=== PATIENT | female | born 1975 | race Caucasian/White ===

== ENCOUNTER 2020-01-08 15:50 | Outpatient (REF) | payer BC, SELFPAY | END 2020-01-08 15:51 | disposition home or self-care (01) | LOC: HO.LAB 15:50 | PROVIDERS: PCP Internal Medicine; Visit Provider Internal Medicine | DX: Z20.828 Contact with and (suspected) exposure to other viral communicable diseases (principal) | CPT/HCPCS: C9803; U0003 ==

== ENCOUNTER 2021-03-03 14:57 | Outpatient (REF) | payer OTHER, SELFPAY ==
[2021-03-03 17:06] LABS: Influenza A PCR NEGATIVE (Negative); Influenza B PCR NEGATIVE (Negative); Resp Syncy Virus RNA Qual PCR NEGATIVE (Negative); SARS COV2 PCR INHOUSE POSITIVE (Negative)
== END 2021-03-03 14:58 | disposition home or self-care (01) ==
LOC: HO.LAB 14:57
PROVIDERS: PCP Internal Medicine; Visit Provider Internal Medicine
DX: Z20.822 Contact with and (suspected) exposure to COVID-19 (principal); R09.81 Nasal congestion
CPT/HCPCS: 0241U

== ENCOUNTER 2023-10-13 12:44 | Outpatient (AMB) | payer OTHER, SELFPAY ==
--- NOTE | 2023-10-13 12:45 | MHC.PC.OV ---
Intake Visit Reasons: High BP Intake Note: Telehealth follow up BP Solution Director Required: No Accompanied by: Self / Same As Patient Allergies No Known Allergies Allergy (Verified 10/13/23 12:48) Tobacco use date assessed: 10/13/23 Dental Screening Dental Screen Date: 10/13/23 Did you have a dental visit in the last 12 months?: Yes Did you have a dental problem in the last 6 months where you did not have access to dental care?: No Was dental information given to patient?: Patient has dentist HPI HPI Comments History of Present Illness Details This is a 48-year-old female with obsessive compulsive disorder and dermatitis that has tele health visit by video today complaining of elevated blood pressure when she goes to the dentist and when she went to urgent care 2 weeks ago. She denies any chest pain or shortness on breath. No other acute complaint. OCD stable with venlafaxine. Dermatitis well controlled with triamcinolone cream. I will order labs and see her in person in 2 weeks for her blood pressure. [facility] Medical History (Updated 10/13/23 @ 13:00 by Willow Johnson MD) Nasal congestion OCD (obsessive compulsive disorder) Surgical History (Updated 10/13/23 @ 12:47 by LOUANN Meek) No pertinent past surgical history Social History Housing: House Alcohol intake: never Patient Tobacco Use Status: Never used Tobacco e-Cigarette/Vaping Use: Never Used Second Hand Smoke Exposure: No service: No Current occupational status: employed Current occupational exposures/hazards: No Cognitive needs: No Hearing needs: No Vision needs: No Questionnaire PHQ-9 Over the last 2 weeks, how often have you been bothered by any of the following problems? 1. Little interest or pleasure in doing things: not at all 2. Feeling down, depressed, or hopeless: not at all 3. Trouble falling or staying asleep, or sleeping too much: not at all 4. Feeling tired or having little energy: not at all 5. Poor appetite or overeating: not at all 6. Feeling bad about yourself - or that you are a failure or have let yourself or your family down: not at all 7. Trouble concentrating on things, such as reading the newspaper or watching television: not at all 8. Moving or speaking so slowly that other people could have noticed. Or the opposite - being so fidgety or restless that you have been moving around a lot more than usual: not at all 9. Thoughts that you would be better off or of hurting yourself in some way: not at all Total score: 0 Depression Screening Interpretation: Negative Depression Screening Done: Yes [id number] - PHQ-9 Billing: Yes Source: Developed by Drs. Nadeem Mckenzie, Karina Holm, Esdras Stinson and colleagues, with an educational vianca from [employer] Thrive Questionnaire Date Thrive assessed: 10/13/23 I am a: Patient What is your living situation today?: I have a steady place to live Within the past 12 months, did the food you bought not last and you didn't have the money to get more?: Never true Within the past 12 months, did you worry whether your food would run out before you got money to buy more?: Never true Do you have trouble paying for medicines?: No Do you have trouble getting transportation to medical appointments?: No Do you have trouble paying your heating and electricity bill?: No Do you have trouble taking care of your child, family member or friend?: No Do you have trouble with day-to-day activities such as bathing, preparing meals, shopping, managing finances, etc.?: No Are you currently unemployed and looking for a job?: No Are you interested in more education?: No Please select the resources that you would like help with: None Currently or been in a relationship where the following occur: No concerns reported THRIVE Score: 0 AUDIT C Alcohol Use Questionnaire (AUDIT-C) 1. How often do you have a drink containing alcohol?: Never Total Score: 0 Score Reviewed/Action Taken: No SEAMUS-7 AMB Questionnaire SEAMUS-7 Date SEAMUS - 7 assessed: 10/13/23 Feeling nervous, anxious, or on edge: 1 = Several days Not being able to stop or control worryin = Not at all Worrying too much about different things: 0 = Not at all Trouble relaxin = Not at all Being so restless that it is hard to sit still: 0 = Not at all Becoming easily annoyed or irritable: 0 = Not at all Feeling afraid as if something awful might happen: 0 = Not at all Total SEAMUS-7 score (0-4 normal; 5-9 mild; 10-14 moderate; 15-21 severe): 1 Source: Developed by Drs. Nadeem Mckenzie, Karina Holm, Esdras Stinson and colleagues, with an educational vianca from [employer] SEAMUS-7 Assessment Billing SEAMUS-7 Assessment Tool: SEAMUS-7 Assessment 22955 Review of Systems Const All systems reviewed & are unremarkable except as noted in HPI and below Card Denies chest pain at rest, Denies chest pain with activity, Denies edema, Denies irregular heart rhythm, Denies claudication, Denies dyspnea, Denies dyspnea on exertion, Denies orthopnea, Denies paroxysmal nocturnal dyspnea and Denies slow heart rate Resp Denies cough, Denies dyspnea and Denies dyspnea on exertion Physical exam (Primary Care) Tobacco/Smoking Status: Tobacco use Status Tobacco use date assessed 10/13/23 10/13/23 12:50 Patient Tobacco Use Status Never used Tobacco 10/13/23 12:50 e-Cigarette/Vaping Use Never Used 10/13/23 12:50 PHQ-9: PHQ-9 Score PHQ-9: Total score 0 10/13/23 12:50 Depression Screening Interpretation: Negative Thrive Assessment: Date of Thrive Assessment Date Thrive assessed 10/13/23 10/13/23 12:50 Currently or been in a relationship where the following occur: No concerns reported HENMT Head: Yes normocephalic General nose exam: Normal external nose present Mouth: lip normal Eyes General: appearance normal, both eyes and all related structures Eyelids: Yes eyelids normal Conjunctivae: conjunctivae normal Extrem General: Yes full ROM Psych Appearance: grossly normal Telehealth Telehealth Telehealth Platform: Other (please specify) (facetime) Location of provider rendering services: practice address Location of patient: address on file Patient Identification confirmed using: Name, : Yes Telehealth method: video Patient verbally consented to treatment: Yes Patient verbally consented to billing insurance company: Yes Patient informed of any privacy concerns related to visit: Yes Minutes spent on Phone/Video with Pt.: 15 Assessment and Plan Assessment & Plan (1) OCD (obsessive compulsive disorder): Code(s): F42.9 - Obsessive-compulsive disorder, unspecified Plan: Continue venlafaxine. (2) Elevated blood pressure reading without diagnosis of hypertension: Code(s): R03.0 - Elevated blood-pressure reading, without diagnosis of hypertension Plan: Fasting labs order and patient is aware she needs to do fasting blood work before appointment. (3) Dermatitis: Code(s): L30.9 - Dermatitis, unspecified Plan: Continue triamcinolone. Orders: Orders Comprehensive [place]. Panel Fast Today R03.0 - Elevated blood-pressure reading, without diagnosis of hypertension Thyroid Stimulating Hormone Today E66.9 - Obesity, unspecified Lipid Panel Today R03.0 - Elevated blood-pressure reading, without diagnosis of hypertension Complete Blood Count Auto Diff Today F42.9 - Obsessive-compulsive disorder, unspecified Medications: Refilled triamcinolone acetonide 0.1% 1 appl topical DAILY 30 days 30 grams 1RF venlafaxine ER 37.5 mg PO DAILY 90 days 90 caps 3RF F42.9 - Obsessive-compulsive disorder, unspecified Coding Level of Care Code Tele Est Pt Level 3 (61105) Complex EM visit Add On [id number] Diagnoses OCD (obsessive compulsive disorder) F42.9 Elevated blood pressure reading without diagnosis of hypertension R03.0 Dermatitis L30.9 Additional Codes SEAMUS-7 Assessment Billing - SEAMUS-7 Assessment Tool: SEAMUS-7 Assessment 37965 ([id number]) Time Spent (min) 15
== END 2023-10-13 14:18 | disposition home or self-care (01) ==
PROVIDERS: PCP Internal Medicine; Visit Provider Internal Medicine
DX: R03.0 Elevated blood-pressure reading, without diagnosis of hypertension (principal); F42.9 Obsessive-compulsive disorder, unspecified; L30.9 Dermatitis, unspecified
CPT/HCPCS: 99213

== ENCOUNTER 2023-10-28 12:09 | Outpatient (REF) | payer BC, SELFPAY ==
[2023-10-28 12:36] LABS: MANUAL DIFF FLAG NO
[2023-10-28 13:45] LABS: Basophils Percent Auto 0.6 % (0-2); Eosinophils Absolute Auto 0.1 X10*3/uL (0.0-0.4); Eosinophils Percent Auto 1.1 % (0-4); Hematocrit 41.2 % (37.0-47.0); Imm Gran Abs Auto 0.02 X10*3/uL (0.00-0.03); Imm Gran Pct Auto 0.3 % (0.0-0.4); Lymphocytes Percent Auto 28.3 % (20-40); Mean Corpuscular Volume 85.3 fL (80.0-98.0); Mean Platelet Volume 10.4 fL (9.4-12.3); Monocytes Absolute Auto 0.6 X10*3/uL (0.1-1.2); Monocytes Percent Auto 8.8 % (2-11); Neutrophils Absolute Auto 4.3 x10*3/uL (2.0-8.3); Neutrophils Percent Auto 60.9 % (45-73); Platelet Count 288 X10*3/uL (160-400); Red Blood Count 4.83 X10*6/uL (4.20-5.50); Red Cell Distribution Width 13.3 % (11.0-16.0)
[2023-10-28 14:34] LABS: Alanine Aminotransferase 14 U/L (0-31); Albumin Level 4.6 g/dL (3.5-5.0); Alkaline Phosphatase 64 U/L (39-117); Anion Gap 10 (12-20); Aspartate Amino Transferase 14 U/L (5-31); Bilirubin Total 0.4 mg/dL (0.0-1.0); Blood Urea Nitrogen 16 mg/dL (9-16); Calcium 9.7 mg/dL (8.4-10.2); Carbon Dioxide 28 mmol/L (22-29); Chloride 104 mmol/L (96-108); Cholesterol 240 mg/dL (<200); Estimated Glomerular Filt Rate > 60; Glucose Fasting 84 mg/dL (60-99); HDL Cholesterol 70 mg/dL (>40); LDL Cholesterol Calculated 150 mg/dL (<100); Potassium 4.3 mmol/L (3.3-5.1); Sodium 138 mmol/L (135-145); Thyroid Stimulating Hormone 2.99 uIU/mL (0.32-4.0); Total Protein 8.1 g/dL (6.5-8.0); Triglycerides 101 mg/dL (<150)
== END 2023-10-28 12:10 | disposition home or self-care (01) ==
LOC: HO.LAB 12:09
PROVIDERS: PCP Internal Medicine; Visit Provider Internal Medicine
DX: R03.0 Elevated blood-pressure reading, without diagnosis of hypertension (principal); E66.9 Obesity, unspecified; F42.9 Obsessive-compulsive disorder, unspecified
CPT/HCPCS: 36415; 80053; 80061; 84443; 85025

== ENCOUNTER 2023-11-02 09:28 | Outpatient (AMB) | payer BC, SELFPAY ==
--- NOTE | 2023-11-02 09:29 | A.OFFPC_ITS ---
Vital Signs 11/02/23 09:30 Height 5 ft 4 in Weight 200 lb BMI 34.3 BP 176/98 H Blood Pressure Location Lt brachial Position Sitting Intake Visit Reasons: 2 week f/u Vehicle Check In Clerk Required: No Accompanied by: Self / Same As Patient Allergies No Known Allergies Allergy (Verified 11/02/23 09:50) Medication List - Last Reconciled 11/02/23 by Willow Johnson MD triamcinolone acetonide 0.1% 1 appl topical DAILY 30 days venlafaxine ER 37.5 mg PO DAILY 90 days Tobacco use date assessed: 10/13/23 Dental Screening Dental Screen Date: 10/13/23 HPI HPI Comments History of Present Illness Details This is a 48-year-old female with obesity and OCD comes today to check her blood pressure. Blood pressure has been over 140/90 at the dentist and at urgent care. This was recently. Denies any chest pain or shortness on breath. I did recommend to start her on medication but she declines it today and would like to start diet and exercise. I did give her a diet and recommend 30 minutes exercise 5 times a week. Blood pressure will be recheck in 3 weeks by nurse navigator. She is obese with a BMI of 34.3 and her BMI goal should be less than 30. OCD stable with venlafaxine. [facility] Medical History (Updated 11/02/23 @ 13:43 by Willow Johnson MD) Elevated blood pressure reading without diagnosis of hypertension Nasal congestion OCD (obsessive compulsive disorder) Surgical History No pertinent past surgical history Social History Housing: House Alcohol intake: never Patient Tobacco Use Status: Never used Tobacco e-Cigarette/Vaping Use: Never Used Second Hand Smoke Exposure: No service: No Current occupational status: employed Current occupational exposures/hazards: No Cognitive needs: No Hearing needs: No Vision needs: No Questionnaire Thrive Questionnaire Date Thrive assessed: 10/13/23 AUDIT C Alcohol Use Questionnaire (AUDIT-C) 2. How many drinks containing alcohol do you have on a typical day when you are drinking?: 1 or 2 3. How often do you have six or more drinks on one occasion?: Never Total Score: 0 SEAMUS-7 AMB Questionnaire SEAMUS-7 Date SEAMUS - 7 assessed: 10/13/23 Source: Developed by Drs. Nadeem Mckenzie, Karina Holm, Esdras Stinson and colleagues, with an educational vianca from [employer]. Review of Systems Const All systems reviewed & are unremarkable except as noted in HPI and below Card Denies chest pain at rest, Denies chest pain with activity, Denies edema, Denies irregular heart rhythm, Denies claudication, Denies dyspnea, Denies dyspnea on exertion, Denies orthopnea, Denies paroxysmal nocturnal dyspnea and Denies slow heart rate Resp Denies cough, Denies dyspnea and Denies dyspnea on exertion GI Denies abdominal pain, Denies change in bowel habits, Denies excessive flatus, Denies nausea and Denies vomiting Denies urinary incontinence, Denies urinary hesitancy and Denies urinary urgency Musc Denies abnormal gait, Denies atrophy, Denies deformity and Denies limited range of motion Skin/Breast Denies bleeding lesions, Denies changing lesions and Denies rash Neuro Denies abnormal gait and Denies lack of coordination Physical exam (Primary Care) Vital Signs: Last Vital Signs BP 176/98 H 11/02/23 09:30 BMI result Body Mass Index 34.3 BMI Assessment/Plan discussion: High BMI High, discussed plan: lifestyle, weight reduction, dietary and physical activity Tobacco/Smoking Status: Tobacco use Status Tobacco use date assessed 10/13/23 11/02/23 09:35 Patient Tobacco Use Status Never used Tobacco 11/02/23 09:35 e-Cigarette/Vaping Use Never Used 11/02/23 09:35 Thrive Assessment: Date of Thrive Assessment Date Thrive assessed 10/13/23 11/02/23 09:35 Resp Effort & Inspection: normal respiratory effort Auscultation: clear to auscultation bilaterally Cardio Jugular venous distension: no JVD Rate: regular rate Rhythm: regular rhythm Heart sounds: S1 normal heart sound present and S2 normal heart sound present Extrem General: Yes full ROM Psych Appearance: grossly normal Assessment and Plan Assessment & Plan (1) OCD (obsessive compulsive disorder): Code(s): F42.9 - Obsessive-compulsive disorder, unspecified Qualifiers: Obsessive-compulsive disorder type: unspecified Qualified Code(s): F42.9 - Obsessive-compulsive disorder, unspecified Plan: Continue venlafaxine. (2) Obesity, Class I, BMI 30.0-34.9 (see actual BMI): Code(s): E66.9 - Obesity, unspecified Plan: Start diet and exercise. BMI goal is less than 30. (3) Essential hypertension: Code(s): I10 - Essential (primary) hypertension Plan: Recheck blood pressure with nurse navigator in 3 weeks. Start a low-salt diet. Blood pressure goal is less than 130/80. She was recommended to take home blood pressure measurements at least every other day and at different times of the day. Coding Level of Care Code Est Pt Level 3 (88561) Diagnoses Obsessive-compulsive disorder, unspecified type F42.9 Obsessive-compulsive disorder type: unspecified Obesity, Class I, BMI 30.0-34.9 (see actual BMI) E66.9 Essential hypertension I10 Time Spent (min) 19
[2023-11-02 09:30] VITALS: BP 176/98; BMI 34.3
== END 2023-11-02 10:10 | disposition home or self-care (01) ==
PROVIDERS: PCP Internal Medicine; Visit Provider Internal Medicine
DX: F42.9 Obsessive-compulsive disorder, unspecified (principal); E66.9 Obesity, unspecified; Z68.34 Body mass index [BMI] 34.0-34.9, adult; I10 Essential (primary) hypertension
CPT/HCPCS: 99213

== ENCOUNTER 2024-07-03 10:33 | Outpatient (AMB) | payer BC, SELFPAY ==
--- NOTE | 2024-07-03 10:35 | A.OFFPC_ITS ---
Vital Signs 07/03/24 10:36 Height 5 ft 4 in Weight 201 lb BMI 34.5 BP 156/90 H Blood Pressure Location Lt brachial Position Sitting Intake Visit Reasons: PE Intake Note: Patient here for a physical exam Science Editor Required: No Accompanied by: Self / Same As Patient Allergies No Known Allergies Allergy (Verified 07/03/24 10:49) Medication List - Last Reconciled 07/03/24 by Willow Johnson MD blood pressure test kit-large ([employer] GlobalTouch Blood Pressure Monitor kit) As directed triamcinolone acetonide 0.1% 1 appl topical DAILY 30 days venlafaxine ER 37.5 mg PO DAILY 90 days Tobacco use date assessed: 07/03/24 Dental Screening Dental Screen Date: 07/03/24 Did you have a dental visit in the last 12 months?: Yes Did you have a dental problem in the last 6 months where you did not have access to dental care?: No Was dental information given to patient?: Patient has dentist HPI HPI Comments History of Present Illness Details The patient is a 49-year-old female presenting mainly for a physical ex am with concerns about elevated blood pressure management and weight. Blood pressure readings at home showed elevation, contrasting lower measurements during a dental visit last week. No antihypertensive medication was started following acceptable home readings on recheck. The patient desires to avoid medication if possible and currently employs a low-sodium diet and adequate hydration strategy. Concern regarding weight stems from consistent exercise without significant loss. The patient engages in a fitness routine comprised of gym sessions and walking. Dietary modifications include limiting carbohydrates and sugars, despite reported difficulties in achieving weight loss. The patient explored weight-loss medication options, focusing on alternatives with a lower risk of raising blood pressure. The patient's immunization status is under review; the last tetanus vaccination was during a 13 years prior. There is expressed willingness to update the vaccine if necessary. The patient wishes to utilize Cologuard for colorectal cancer screening, citing perception of adverse preparation experiences associated with colonoscopy from her spouse's experience while having no family history of colon cancer. - Discussed tetanus vaccine (Tdap) and r ecommended due to a 13-year interval since the last administration. - Blood pressure management plan without medication: pursue a low sodium diet and adequate hydration. - Weight management discussion: consiste nt exercise three to four times weekly and dietary modifications to lower carbohydrate and sugar intake. - Screening for colorectal cancer via Co loguard requested, understanding follow- up with colonoscopy if results are positive. - Lipid panel and comprehensive blood pa hardeep indicated, as mild cholesterol elevation noted previously. [facility] Medical History (Updated 07/03/24 @ 11:12 by Willow Johnson MD) Elevated blood pressure reading without diagnosis of hypertension Nasal congestion OCD (obsessive compulsive disorder) Surgical History No pertinent past surgical history Family History (Updated 07/03/24 @ 10:58 by Willow Johnson MD) Father No problems noted. Mother Kidney malignancy Uterine cancer Social History Housing: House Alcohol intake: never Patient Tobacco Use Status: Never used Tobacco e-Cigarette/Vaping Use: Never Used Second Hand Smoke Exposure: No service: No Current occupational status: employed Current occupational exposures/hazards: No Cognitive needs: No Hearing needs: No Vision needs: No Questionnaire PHQ-9 Over the last 2 weeks, how often have you been bothered by any of the following problems? 1. Little interest or pleasure in doing things: not at all 2. Feeling down, depressed, or hopeless: not at all 3. Trouble falling or staying asleep, or sleeping too much: not at all 4. Feeling tired or having little energy: not at all 5. Poor appetite or overeating: not at all 6. Feeling bad about yourself - or that you are a failure or have let yourself or your family down: not at all 7. Trouble concentrating on things, such as reading the newspaper or watching television: not at all 8. Moving or speaking so slowly that other people could have noticed. Or the opposite - being so fidgety or restless that you have been moving around a lot more than usual: not at all 9. Thoughts that you would be better off or of hurting yourself in some way: not at all Total score: 0 Depression Screening Interpretation: Negative Depression Screening Done: Yes 15242 - PHQ-9 Billing: Yes Source: Developed by Drs. Nadeem Mckenzie, Karina Holm, Esdras Stinson and colleagues, with an educational vianca from [employer]. Thrive Questionnaire Date Thrive assessed: 07/03/24 I am a: Patient What is your living situation today?: I have a steady place to live Within the past 12 months, did the food you bought not last and you didn't have the money to get more?: I choose not to answer this question Within the past 12 months, did you worry whether your food would run out before you got money to buy more?: I choose not to answer this question Do you have trouble paying for medicines?: No Do you have trouble getting transportation to medical appointments?: No Do you have trouble paying your heating and electricity bill?: No Do you have trouble taking care of your child, family member or friend?: No Do you have trouble with day-to-day activities such as bathing, preparing meals, shopping, managing finances, etc.?: No Are you currently unemployed and looking for a job?: No Are you interested in more education?: No Please select the resources that you would like help with: None Currently or been in a relationship where the following occur: No concerns reported THRIVE Score: 0 AUDIT C Alcohol Use Questionnaire (AUDIT-C) 1. How often do you have a drink containing alcohol?: Never Total Score: 0 Score Reviewed/Action Taken: No SEAMUS-7 AMB Questionnaire SEAMUS-7 Date SEAMUS - 7 assessed: 07/03/24 Feeling nervous, anxious, or on edge: 0 = Not at all Not being able to stop or control worryin = Not at all Worrying too much about different things: 0 = Not at all Trouble relaxin = Not at all Being so restless that it is hard to sit still: 0 = Not at all Becoming easily annoyed or irritable: 1 = Several days Feeling afraid as if something awful might happen: 0 = Not at all Total SEAMUS-7 score (0-4 normal; 5-9 mild; 10-14 moderate; 15-21 severe): 1 Source: Developed by Drs. Nadeem Mckenzie, Karina Holm, Esdras Stinson and colleagues, with an educational vianca from [employer]. SEAMUS-7 Assessment Billing SEAMUS-7 Assessment Tool: SEAMUS-7 Assessment 81350 Review of Systems Const All systems reviewed & are unremarkable except as noted in HPI and below Card Denies chest pain at rest, Denies chest pain with activity, Denies edema, Denies irregular heart rhythm, Denies claudication, Denies dyspnea, Denies dyspnea on exertion, Denies orthopnea, Denies paroxysmal nocturnal dyspnea and Denies slow heart rate Resp Denies cough, Denies dyspnea and Denies dyspnea on exertion GI Denies abdominal pain, Denies change in bowel habits, Denies excessive flatus, Denies nausea and Denies vomiting Physical exam (Primary Care) Vital Signs: Last Vital Signs BP 156/90 H 07/03/24 10:36 BMI result Body Mass Index 34.5 BMI Assessment/Plan discussion: High BMI High, discussed plan: lifestyle, weight reduction, dietary and physical activity Tobacco/Smoking Status: Tobacco use Status Tobacco use date assessed 07/03/24 07/03/24 10:40 Patient Tobacco Use Status Never used Tobacco 07/03/24 10:40 e-Cigarette/Vaping Use Never Used 07/03/24 10:40 PHQ-9: PHQ-9 Score PHQ-9: Total score 0 07/03/24 11:12 Depression Screening Interpretation: Negative Thrive Assessment: Date of Thrive Assessment Date Thrive assessed 07/03/24 07/03/24 10:40 Currently or been in a relationship where the following occur: No concerns reported [facility] Head: Yes normal to inspection, Yes normocephalic and Yes atraumatic Ears: external ears normal Eyes General: appearance normal, both eyes and all related structures Eyelids: Yes eyelids normal Conjunctivae: conjunctivae normal Neck Neck: Yes normal visual inspection and Yes supple Resp Effort & Inspection: normal respiratory effort Auscultation: clear to auscultation bilaterally Cardio Jugular venous distension: no JVD Rate: regular rate Rhythm: regular rhythm Heart sounds: S1 normal heart sound present and S2 normal heart sound present GI Inspection: Yes normal to inspection Palpation (GI): Soft to palpation and nontender Auscultation: normal bowel sounds Skin General skin exam: no rashes or lesions noted Neuro General: no focal motor deficits Extrem General: Yes full ROM Psych Appearance: grossly normal Immunizations Boostrix Tdap 2.5 Lf unit-8 mcg-5 Lf/0.5 mL intramuscular syringe Performing Provider: Willow Johnson MD [facility] Administered by: LOUANN Meek on 07/03/24 11:15 Dose Route Admin Location Dispensed Lot Number Expiration Date 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 0.5 mL IM Left Deltoid 0.5 mL [id number] 10/16/26 07762-091-39 [place] VIS Given Date VIS Provided VIS Publication Date 07/03/24 Single Vaccine 24 Eligibility Eligibility Date Funding Source Not [facility] Eligible 07/03/24 Private Coding Level of Care Code Est Pt Level 3 (27642) Est Pt Prev Care 40-64y(98261) Diagnoses Physical exam Z00.00 Obesity, Class I, BMI 30.0-34.9 (see actual BMI) E66.9 Additional Codes SEAMUS-7 Assessment Billing - SEAMUS-7 Assessment Tool: SEAMUS-7 Assessment 96055 ([id number]) PHQ-9 - 40553 - PHQ-9 Billing: Yes ([id number]) Time Spent (min) 33 Assessment & Plan Assessment & Plan (1) Physical exam: Code(s): Z00.00 - Encounter for general adult medical examination without abnormal findings Category: Medical (2) Obesity, Class I, BMI 30.0-34.9 (see actual BMI): Code(s): E66.9 - Obesity, unspecified Category: Medical Plan The patient will receive the tetanus vaccine as indicated for updated immu nization. Blood pressure will be managed with lifestyle changes, maintaining a low-sodium diet and adequate hydration while assessing the necessity for antihypertensive medication. Weight management will be addressed with new medication options; Topiramate is proposed considering the patient?s hesitant stance on phentermine due to potential for blood pressure elevation. Regular screenings will be upheld with a Cologuard test ordered for colon cancer screening, and cholesterol levels will be rechecked due to previous mild elevation. Immunizations, mammograms, and Pap smears are arranged with her respective providers. Patient was informed and verbally consented to the use of an ambient scribe for clinic note documentation during this visit. We discussed the importance of addressing elevated blood pressure through non- pharmacologic approaches which the patient prefers, including dietary sodium reduction and ensuring adequate hydration. For weight management, the option of Topiramate was presented, discussing mild side effect profile and potential modest weight loss, while the patient wishes to avoid phentermine due to its cardiovascular risks. The patient will undertake colorectal cancer screening through Cologuard, understanding that a positive result would necessitate follow-up with colonoscopy. A re-evaluation of the patient's cholesterol level was considered due to previous mild elevation, with proactive management planned based on results. Upcoming mammogram and Pap smear arrangements were discussed for continuity of care. Follow-up will occur for subsequent monitoring and adjustment of treatment strategies. Orders: Orders Lipid Panel Today E78.5 - Hyperlipidemia, unspecified Comprehensive Met. Panel Today Z00.00 - Encounter for general adult medical examination without abnormal findings TDaP Immunization Today Z23 - Encounter for immunization Referrals Cologuard Test Z12.11 - Encounter for screening for malignant neoplasm of colon, Z12.12 - Encounter for screening for malignant neoplasm of rectum Medications: New topiramate 25 mg PO BEDTIME 30 tabs 0RF 30 days Refilled triamcinolone acetonide 0.1% 1 appl topical DAILY 30 grams 1RF 30 days Patient Instructions: - Get the tetanus booster vaccine. - Follow a low sodium diet and stay hydrated. - Try the prescribed Topiramate for weight management. - Use Cologuard for colorectal cancer screening. - Re-test cholesterol levels as advised. - Schedule mammogram and Pap smear appointments as usual. - Maintain the current exercise and dietary routine, avoiding high-carb and h igh-sugar foods.
[2024-07-03 10:36] VITALS: BP 156/90; BMI 34.5
== END 2024-07-03 11:18 | disposition home or self-care (01) ==
LOC: HO.HMCH 10:34
PROVIDERS: PCP Internal Medicine; Visit Provider Internal Medicine
DX: Z00.00 Encounter for general adult medical examination without abnormal findings (principal); E66.9 Obesity, unspecified; Z68.34 Body mass index [BMI] 34.0-34.9, adult; Z23 Encounter for immunization

== ENCOUNTER → 2024-07-03 10:33 | Outpatient (BNVA) | payer BC, SELFPAY | PROVIDERS: PCP Internal Medicine; Visit Provider Internal Medicine | DX: Z00.00 Encounter for general adult medical examination without abnormal findings (principal); Z23 Encounter for immunization; E66.9 Obesity, unspecified; Z68.34 Body mass index [BMI] 34.0-34.9, adult | CPT/HCPCS: 90471; 90715; 96127 ==

== ENCOUNTER 2024-12-29 10:32 | Outpatient (REF) | payer BC, SELFPAY ==
--- OUTSIDE RECORDS SUMMARY | 2024-12-29 10:35 | XMS_ITS | Clinical Summary ---
Author Organization 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 5 Active triamcinolone (KENALOG) 0.1 % cream USE 1 APPL TOPICALLY DAILY FOR 30 DAYS 5 Active venlafaxine XR (EFFEXOR-XR) 37.5 mg 24 hr capsule Take 1 capsule (37.5 mg total) by mouth 1 (one) time each day. Active norethindrone (Aygestin) 5 mg tablet Take 1 tablet (5 mg total) by mouth 1 (one) time each day. 84 each 3 5 09/11/19 26 Active Surgical History Surgery Date Site/Laterality Comments OTHER SURGICAL HISTORY PROCEDURE: DENIES PREVIOUS SURGERY Medical History Medical History Date Comments OCD (obsessive compulsive disorder) DX:OCD (obsessive compulsive disorder) Family History Medical History Relation Name Comments Ovarian cancer Aunt Breast cancer Neg Hx Colon cancer Neg Hx Uterine cancer Neg Hx Relation Name Status Comments Aunt Social History Tobacco Use Types Packs/Day Years Used Date Smoking Tobacco: Never Smokeless Tobacco: Never Alcohol Use Standard Drinks/Week Comments No 0 (1 standard drink = 0.6 oz pur e alcohol) Housing Instability Answer Date Recorde d Are you worried that in the next 2 months you may not have stable housing? No 09/04/2024 Food Access & Nutrition Answer Date Rec orded Do you have access to a vari ety of food including fruits and vegetables? Yes 09/04/2024 Access to Healthcare Answer Date Record ed Within the last 3 months, ho w many times did you visit the emergency department for your medical care? 0 09/04/2024 Health Literacy Answer Date Recorded How often do you need to hav e someone help you when you read instructions, pamphlets, or other written material from your doctor or pharmacy? Never 09/04/2024 Caregiver: How often do you need to have someone help you when you read instructions, pamphlets, or other written material from your doctor or pharmacy? Not on file 09/04/2024 Financial Risk Answer Date Recorded How hard is it for you to pa y for the very basics like food, housing, medical care, and air conditioning / heating? Not very hard 09/04/2024 Transportation Answer Date Recorded Has the lack of transportati on kept you from meetings, work, or from getting things needed for daily living? No Has the lack of transportati on kept you from medical appointments or from getting medications? No 09/04/2024 Social Isolation Answer Date Recorded How often do you feel lonely or isolated from th ose around you? Never 09/04/2024 Food Risk Answer Date Recorded Within the past 12 months we worried whether our food would run out before we got money to buy more. Never true 09/04/2024 Within the past 12 months th e food we bought just didn't last and we didn't have money to get more. Never true 09/04/2024 Dependent Care Answer Date Recorded Do you need help finding or paying for care for your loved ones. For example, director of early childhood education or elderly care for an older adult? No 09/04/2024 Education Answer Date Recorded Do you think completing more education or training, like finishing a GED, going to college, or learning a trade, would be helpful for you? No 09/04/2024 Employment and Income Answer Date Recor ded During the last four weeks, have you been actively looking for work? No 09/04/2024 Living Situation Answer Date Recorded What is your living situation? Unrecognized valu e 09/04/2024 Comments No Sex and Gender Information Value Date Recorded Sex Assigned at Not on file Legal Sex Female 3:25 PM EST Gender Identity Not on file Sexual Orientation Not on file Obstetrics History Para Term AB IAB SAB Ectopic Multiple Livin g Live Births 3 3 3 0 0 0 3 3 Date Outcome GA Total Labor Labor/2nd/3rd Weight Sex Type Anes PTL Daphne A1 A5 Name Clin 001 Term M Vag-S pont Varghese g Benedict Delivery Location:[place] Comments:uncompl 006 Term F Vag-S pont Daphnein g Karen a [place] Comments:uncompl 011 Term F Vag-S pont Daphnein g Aubrya na Delivery [place] Comments:uncompl Last Filed Vital Signs Vital Sign Reading Time Taken Comments Blood Pressure 162/86 09/05/2024 8:39 AM EDT Pulse 86 09/05/2024 8:39 AM EDT Temperature - - Respiratory Rate 14 09/05/2024 8:39 AM EDT Oxygen Saturation - - Inhaled Oxygen Concentration - - Weight 93 kg (205 lb) 09/05/2024 8:39 AM EDT Height 162.6 cm (5' 4 ) 11/18/2021 10:57 AM EDT Body Mass Index 35.19 11/18/2021 10:57 AM EDT Plan of Treatment Health Maintenance Due Date Last Done Comments Breast Cancer Screening 1976 Colorectal Cancer Screening: Colonoscopy 1975 Hepatitis B Vaccines (1 of 3 - 19+ 3-dose series) 07/03/1995 HIV Screening 01/31/2022 Hepatitis C Screening 01/31/2022 COVID-19 Vaccine ( - 2023-2 5 season) 2024 Influenza Vaccine (#1) 2024 Cervical Cancer Screening: P ap Smear 11/18/2024 11/18/2021, 06/20/2017 Social Influencers of Health Screening 09/04/2025 09/04/2024 DTaP,Tdap,and Td Vaccines (2 - Td or Tdap) 07/03/2034 07/03/2024 RSV Immunization Adult Patients (1 - 1-dose 75+ series) 07/03/2051 Depression Screening Completed 09/04/2024 HIB Vaccines Aged Out No longer eligi ble based on patient's age to complete this topic HPV Vaccines Aged Out No longer eligi ble based on patient's age to complete this topic Hepatitis A Vaccines Aged Out No long er eligible based on patient's age to complete this topic IPV Vaccines Aged Out No longer eligi ble based on patient's age to complete this topic MMR Vaccines Aged Out No longer eligi ble based on patient's age to complete this topic Meningococcal ACWY Vaccine Aged Out N o longer eligible based on patient's age to complete this topic Meningococcal B Vaccine Aged Out No l onger eligible based on patient's age to complete this topic Pneumococcal Vaccine: Pediatrics (0 to 5 Years) and At-Risk Patients (6 to 49 Years) Aged Out No longer eligible b ased on patient's age to complete this topic RSV Immunization Patients Under 20 months Aged Out No longer eligible b ased on patient's age to complete this topic Varicella Vaccines Aged Out No longer eligible based on patient's age to complete this topic Procedures Procedure Name Priority Date/Time Associated Diagnosis Comments PAP SMEAR Routine 11/18/2021 from Last 3 Months or Most Recently Relevant to Health Maintenance Results * Pap smear (11/18/2021) 11/18/2021 Narrative HISTORICAL TESTING LAB RESULTING AGENCY - 12/03/2021 2:36 PM EDT [id number] THINPREP PAP: NEGATIVE FOR SQUAMOUS INTRAEPITHELIAL LESION AND MALIGNANCY . NOTE: ADEQUACY DEEMED SATISFACTORY AFTER REPROCESSING WITH ACID WASH PROCEDURE. COLBY MON(ASCP) (CASE ELECTRONICALLY SIGNED 12 03 2021) RESULT OF APTIMA HIGH RISK HPV ASSAY: HIGH RISK HPV: POSITIVE (SEROTYPES 16,18,31,33,35,39,45,51,52,56,58,59,66,68) RESULTS OF APTIMA HPV 16 AND 18/45 GENOTYPE ASSAY: HPV 16: NEGATIVE HPV 18/45: NEGATIVE COMPLETED ON 2021-11-20 ADEQUACY: SATISFACTORY ENDOCERVICAL/TRANSFORMATION ZONE COMPONENT PRESENT. SOURCE: THINPREP PAP HPV ANY DX: REFLEX 16 AND 18, CERVICAL, IMAGED CLINICAL INFORMATION: HPV ANY DIAGNOSIS. HORMONES, PAP HX NEGATIVE, LMP 10/28/21, [Z12.4] Helio Dong CN LAB CYTOLOGY ORDERABLES Final Result HISTORICAL TESTING LAB RESULTING AGENCY from Last 3 Months or Most Recently Relevant to Health Maintenance Insurance [facility] Care Teams Orchard Worker Relationship Specialty Start Date End Date Willow Johnson MD [address] [place] [address] , [address] [facility] D[facility]A: [facility] [place], [place] PCP - General Internal Medicine 09/05/24
[2024-12-29 10:44] LABS: MANUAL DIFF FLAG NO
[2024-12-29 11:39] LABS: Hematocrit 38.1 % (37.0-47.0); Hemoglobin 12.4 g/dl (12.0-16.0); Imm Gran Abs Auto 0.01 X10*3/uL (0.00-0.03); Imm Gran Pct Auto 0.2 % (0.0-0.4); Lymphocytes Absolute Auto 1.9 X10*3/uL (1.2-4.9); Mean Corpuscular HGB Conc 32.5 g/dl (31.0-35.0); Mean Corpuscular Hemoglobin 27.7 pg (27.0-33.0); Mean Corpuscular Volume 85.2 fL (80.0-98.0); NRBC Abs Auto 0.000 X10*3/uL (0.0-0.012); NRBC Pct Auto 0.0 /100WBC (0.0-0.2); Platelet Count 308 X10*3/uL (160-400); Red Blood Count 4.47 X10*6/uL (4.20-5.50); White Blood Count 5.2 X10*3/uL (4.8-10.8)
[2024-12-29 12:12] LABS: Alanine Aminotransferase 21 U/L (0-31); Albumin Level 4.7 g/dL (3.5-5.0); Alkaline Phosphatase 69 U/L (39-117); Anion Gap 12 (12-20); Aspartate Amino Transferase 17 U/L (5-31); Blood Urea Nitrogen 19 mg/dL (9-16); Calcium 9.2 mg/dL (8.4-10.2); Carbon Dioxide 24 mmol/L (22-29); Chloride 108 mmol/L (96-108); Cholesterol 219 mg/dL (<200); Estimated Glomerular Filt Rate > 60; HDL Cholesterol 65 mg/dL (>40); Iron 60 mcg/dL (30-160); Percent Iron Saturation 19 % (15-50); Potassium 4.2 mmol/L (3.3-5.1); Sodium 140 mmol/L (135-145); Total Iron Binding Capacity 324 mcg/dL (228-428); Total Protein 7.8 g/dL (6.5-8.0); Triglycerides 76 mg/dL (<150); Unsaturated Iron Binding 264 ug/dL
== END 2024-12-29 10:33 | disposition home or self-care (01) ==
LOC: HO.LAB 10:32
PROVIDERS: PCP Internal Medicine; Visit Provider Internal Medicine
DX: Z00.00 Encounter for general adult medical examination without abnormal findings (principal); D64.9 Anemia, unspecified; E78.5 Hyperlipidemia, unspecified
CPT/HCPCS: 36415; 80053; 80061; 83540; 85025

== ENCOUNTER 2025-01-07 08:00 | Outpatient (AMB) | payer BC, SELFPAY ==
[2025-01-07 08:09] VITALS: BP 150/90; PULSE 88; TEMP 36.2; O2SAT 96; BMI 35.1
--- NOTE | 2025-01-07 08:09 | A.OFFPC_ITS ---
Vital Signs 01/07/25 08:09 Height 5 ft 4 in Weight 204 lb 6 oz BMI 35.1 BP 150/90 H Blood Pressure Location Lt brachial Position Sitting Pulse 88 Pulse Source Pulse Oximeter Temp 97.1 F Temp Source Temporal Artery Scan Pulse Oximetry (%) 96 Oxygen Delivery Method Room Air Intake Visit Reasons: 6 months Intake Note: Patient is here to follow up on HTN. Education Managers Required: No Fleet Sales Associate: Not Required per policy Accompanied by: Self / Same As Patient Allergies No Known Allergies Allergy (Verified 01/07/25 08:22) Medication List - Last Reconciled 01/07/25 by Willow Johnson MD blood pressure test kit-large (ROKT Blood Pressure Monitor kit) As directed losartan 25 mg PO DAILY 90 days triamcinolone acetonide 0.1% 1 appl topical DAILY 30 days venlafaxine ER 37.5 mg PO DAILY 90 days Tobacco use date assessed: 01/07/25 Dental Screening Dental Screen Date: 07/03/24 HPI HPI Comments History of Present Illness Details The patient is a 49-year-old female presenting for a follow-up visit for chronic condition management, medication review, and discussion of lab results. She has a history of hypertension, for which she takes losartan 25 mg every morning. Her current medications also include venlafaxine 37.5 mg for her OCD. The patient has been struggling with weight loss and had previously discussed Topamax for this purpose but decided against taking it. She has been making dietary changes, such as cutting out more food items, which has resulted in an improvement in her cholesterol levels. She does have pure hypercholesterolemia about her [place] risk score is 1.4% therefore no need for statins. Regarding preventative care, her Cologuard test this year was negative, with the next one due in 2027. She has an upcoming appointment for a mammogram and needs to schedule a follow-up with her area development manager regarding IUD issues, for which an ultrasound was previously indicated. [facility] Medical History (Updated 01/07/25 @ 08:34 by Willow Johnson MD) Elevated blood pressure reading without diagnosis of hypertension Nasal congestion OCD (obsessive compulsive disorder) Surgical History No pertinent past surgical history Family History Father No problems noted. Mother Kidney malignancy Uterine cancer Social History Housing: House Alcohol intake: never Patient Tobacco Use Status: Never used Tobacco Tobacco use type: Cigarette e-Cigarette/Vaping Use: Never Used Second Hand Smoke Exposure: No service: No Current occupational status: employed Current occupational exposures/hazards: No Cognitive needs: No Hearing needs: No Vision needs: No Questionnaire Thrive Questionnaire Date Thrive assessed: 06/26/24 I am a: Patient What is your living situation today?: I have a steady place to live Within the past 12 months, did the food you bought not last and you didn't have the money to get more?: I choose not to answer this question Within the past 12 months, did you worry whether your food would run out before you got money to buy more?: I choose not to answer this question Do you have trouble paying for medicines?: No Do you have trouble getting transportation to medical appointments?: No Do you have trouble paying your heating and electricity bill?: No Do you have trouble taking care of your child, family member or friend?: No Do you have trouble with day-to-day activities such as bathing, preparing meals, shopping, managing finances, etc.?: No Are you currently unemployed and looking for a job?: No Are you interested in more education?: No Please select the resources that you would like help with: None Currently or been in a relationship where the following occur: No concerns reported THRIVE Score: 0 SEAMUS-7 AMB Questionnaire SEAMUS-7 Date SEAMUS - 7 assessed: 07/03/24 Source: Developed by Drs. Nadeem Mckenzie, Karina Holm, Esdras Stinson and colleagues, with an educational vianca from [employer]. Review of Systems Const All systems reviewed & are unremarkable except as noted in HPI and below Card Denies chest pain at rest, Denies chest pain with activity, Denies edema, Denies irregular heart rhythm, Denies claudication, Denies dyspnea, Denies dyspnea on exertion, Denies orthopnea, Denies paroxysmal nocturnal dyspnea and Denies slow heart rate Resp Denies cough, Denies dyspnea and Denies dyspnea on exertion GI Denies abdominal pain, Denies change in bowel habits, Denies excessive flatus, Denies nausea and Denies vomiting Denies urinary incontinence, Denies urinary hesitancy and Denies urinary urgency Physical exam (Primary Care) Vital Signs: Last Vital Signs Temp 97.1 F 01/07/25 08:09 Oxygen Delivery Method Room Air 01/07/25 08:09 BMI result Body Mass Index 35.1 BMI Assessment/Plan discussion: High BMI High, discussed plan: lifestyle, weight reduction, dietary and physical activity Tobacco/Smoking Status: Tobacco use Status Tobacco use date assessed 07/03/24 01/07/25 08:10 Patient Tobacco Use Status Never used Tobacco 01/07/25 08:10 Tobacco use type Cigarette 01/07/25 08:10 e-Cigarette/Vaping Use Never Used 01/07/25 08:10 Thrive Assessment: Date of Thrive Assessment Date Thrive assessed 06/26/24 01/07/25 08:10 Currently or been in a relationship where the following occur: No concerns reported Resp Effort & Inspection: normal respiratory effort Auscultation: clear to auscultation bilaterally Cardio Jugular venous distension: no JVD Rate: regular rate Rhythm: regular rhythm Heart sounds: S1 normal heart sound present and S2 normal heart sound present Extrem General: Yes full ROM Coding Level of Care Code Est Pt Level 4 (88434) Diagnoses Essential hypertension I10 Obsessive-compulsive disorder, unspecified type F42.9 Obsessive-compulsive disorder type: unspecified Obesity (BMI 35.0-39.9 without comorbidity) E66.9 Pure hypercholesterolemia E78.00 Time Spent (min) 21 Assessment & Plan Assessment & Plan (1) Essential hypertension: Code(s): I10 - Essential (primary) hypertension Category: Medical (2) OCD (obsessive compulsive disorder): Code(s): F42.9 - Obsessive-compulsive disorder, unspecified Category: Medical Qualifiers: Obsessive-compulsive disorder type: unspecified Qualified Code(s): F42.9 - Obsessive-compulsive disorder, unspecified (3) Obesity (BMI 35.0-39.9 without comorbidity): Code(s): E66.9 - Obesity, unspecified Category: Medical (4) Pure hypercholesterolemia: Code(s): E78.00 - Pure hypercholesterolemia, unspecified Category: Medical Plan Plan 1. Essential Hypertension The patient's blood pressure was elevated today despite taking her losartan 25 mg about 30 minutes before her appointment. No change will be made to her current medication dosage at this time. A follow-up blood pressure check is scheduled in three weeks. The patient was advised to take her medication one hour prior to her next appointment. 2. Hyperlipidemia Recent blood work shows a decrease in total cholesterol from 240 to 219, with a good HDL of 65. The patient's 10-year risk for a heart attack or stroke is very low at 1.4% per the [place] Risk Score. No cholesterol medication is indicated at this time. Continuation of dietary modifications is encouraged. 3. Obese BMI 35 The patient reports significant difficulty with weight loss. She was referred to [facility] at [facility] for a consultation on weight management. It was mentioned that this clinic can prescribe medications such as Wegovy. 4. OCD Continue venlafaxine.
== END 2025-01-07 08:38 | disposition home or self-care (01) ==
PROVIDERS: PCP Internal Medicine; Visit Provider Internal Medicine
DX: I10 Essential (primary) hypertension (principal); F42.9 Obsessive-compulsive disorder, unspecified; E66.9 Obesity, unspecified; Z68.35 Body mass index [BMI] 35.0-35.9, adult; E78.00 Pure hypercholesterolemia, unspecified